=== PATIENT | male | born 1980 | race Caucasian/White ===

== ENCOUNTER 2025-06-02 09:42 | Day surgery (SDC) | payer MEDICARE, MEDICAID ==
[2025-06-02] VITALS (8 sets, daily range): BP systolic 115–141; BP diastolic 65–96; PULSE 53–61; RESP 11–16; TEMP 98; O2SAT 99–100
[~2025-06-02] VITALS: Ht 172.7 cm; Wt 71.7 kg
[~2025-06-02 09:42] MED LIST: ALBUAER3 IN; CYAN100088 PO; DOCU-94 PO; ENO40SY SUBCUT; FERR325T20 PO; FURO20TA3 PO; GABA800T97 PO; IPRAAER6 IN; ONDA-144 PO; POTA-36 PO; [UNRECOGNIZED DRUG - CODE] OP
[2025-06-02] MEDS: LIDOCAINE 2%HCL (LOCAL ANESTH.) INJ 20ML MDV ONE (10:21)
[2025-06-02] MEDS: IODIXANOL 320MG/ML 100ML BTL IV ONE (10:21)
[2025-06-02] MEDS: MIDAZOLAM HCL 2MG/2ML 2ml VIAL (1mg/ml) IV ONE (10:30)
[2025-06-02] MEDS: fentaNYL CITRATE 100 MCG/2 ML VL IV ONE (10:30)
[2025-06-02] MEDS: LIDOCAINE VISCOUS 2% 15ML UD PO ONE (10:30)
[2025-06-02] MEDS: ANGIOMAX 250 MG VIAL IV ONE (11:05)
[2025-06-02] MEDS: VERAPAMIL 2.5MG/ML INJ 2ML VIAL IV ONE (11:05)
[2025-06-02] MEDS: HEPARIN SODIUM (PORCINE) 5000 UNITS/ML 1ML VIAL ONE (11:05)
[2025-06-02] MEDS: SODIUM CHL 0.9% 0 ML ONE (11:06)
--- NOTE | 2025-06-02 11:06 | DVHOP2 ---
Operative Report Operative Report CARDIAC RENEWABLE ENERGY BROKER PROCEDURE REPORT [place], [place] Date of Service: 06/02/25 Senior Software Qa Analyst: Frederick Lopez MD PROCEDURES PERFORMED: trans esophageal echocardiogram, conscious sedation <15 mins, doppler assesment complete CHRIS, DC cardioversion PREOPERATIVE DIAGNOSES: mitral regurg, MVP POSTOP DIAGNOSIS: MVP DESCRIPTION OF PROCEDURE: The patient or appropriate family signed informed consent understanding the risks, benefits and alternatives of the procedure, they wished to proceed. The patient was brought to the cardiac recyclable products sorter in n.p.o. state. the patient was given 15 ml of oral viscous lidocaine. the patient was placed in a left lateral decubitus position with bite block in mouth. NExt conscious sedation was administered per recyclable products sorter protocol with _1_ mg of versed and __50_ mcg of fentanyl. Next a CHRIS probe was advanced to the mid esophagus with ease and multiple planar images obtained. At the completion of the procedure , probe was removed and there were no immediate complications. FINDINGS: Left Ventricle: LV dilated mild and moderate dysfunction, LVEF 40-45% Right Ventricle: NOrmal RV size Left atrium: enlarged, Right atrium: borderline enlarged Left atrial appendage: no thrombus noted, Aortic valve: trileaflet valve, no severe or AI Mitral Valve: myxomatous valve, mild prolapse noted, ?anterior leaflet, mild mitral regurg that is eccentric Tricuspid Valve: mild tricuspid regurgitaiton, no TS Pulmonic Valve: strucutrally normal, no severe PIor PS Interatrial septum: negative color flow for R to L shunt, negative bubble study for R to L shunt Ascending aorta: no severe plaquing PLAN: mitral regurg is not significant no this study--annual echo start GDMT for HF proceed to cath FREDERICK LOPEZ MD Jun 02, 2025 11:06
--- NOTE | 2025-06-02 11:33 | DVHOP2 ---
Operative Report Operative Report CARDIAC INTERNATIONAL CONTROLLER PROCEDURE REPORT [place], [place] Date of Service: 06/02/25 Skidder Operator: Frederick Lopez MD PROCEDURES PERFORMED: Coronary angiogram, left heart catheterization, conscious sedation administration and supervision, less than 15 minutes; fluoroscopy use and interpretation. PREOPERATIVE DIAGNOSES: mitral regurg POSTOP DIAGNOSIS: mitral regurg DESCRIPTION OF PROCEDURE: The patient or appropriate family signed informed consent understanding the risks, benefits and alternatives of the procedure, they wished to proceed. The patient was brought to the cardiac cathodic protection technician in n.p.o. state. The patient was prepped in a sterile fashion. Sedation was used per cardiac cath protocol. I administered 2 mL of 2% lidocaine to the right wrist. With an antegrade front wall puncture. I cannulated the right radial artery and placed a 6-[place] Glidesheath slender. Next, an intra-arterial spasmolytic was administered. Next, a - 6French [place] catheter and XXXXX guide and were used for coronary angiogram and LVEDP measurement and pressure pullback. At the completion of procedure, all guides and wires were removed, and there were no immediate complications. FINDINGS: RCA: Moderate vessel off the right sinus of Valsalva, there is no severe flow limiting stenosis. LEFT MAIN: Moderate size left main, it bifurcates into LAD and circumflex. no stenosis CIRCUMFLEX: Moderate caliber vessel coming off the left main with no flow limiting stenosis. LAD: LAD is a moderate caliber vessel coming of the left main. no stenosis LVEDP of 11 mhg CONCLUSIONS: 1. no severe cad noted PLAN: Aggressive risk factor modification and medical management for the patient. FREDERICK LOPEZ MD Jun 02, 2025 11:33
[2025-06-02] MEDS: HYDROcodone-ACET 5/325MG TAB PO ONE (12:01)
[2025-06-02] MEDS: HYDROcodone-ACET 5/325MG TAB ONE (12:01)
== END 2025-06-02 14:05 | disposition home or self-care (01) ==
LOC: CATH 09:42
PROVIDERS: ATTEND Internal Medicine
DX: I08.1 Rheumatic disorders of both mitral and tricuspid valves (principal); I10 Essential (primary) hypertension; J44.9 Chronic obstructive pulmonary disease, unspecified; Z21 Asymptomatic human immunodeficiency virus [HIV] infection status; Z79.899 Other long term (current) drug therapy; Z86.73 Personal history of transient ischemic attack (TIA), and cerebral infarction without residual deficits; Z87.891 Personal history of nicotine dependence; Z82.5 Family history of asthma and other chronic lower respiratory diseases; Z82.49 Family history of ischemic heart disease and other diseases of the circulatory system
CPT/HCPCS: 93312; 93325; 93458; C1769; C1894; J1644; J2250; J3010; Q9967; 99152; 99153